=== PATIENT | female | born 1960 | race Hispanic/Latino ===

== ENCOUNTER 2016-11-04 00:56 | Observation (INO) | payer OTHER ==
[~2016-11-04] VITALS: Ht 157.5 cm; Wt 79.4 kg
--- NOTE | 2016-11-04 17:42 | Operative Report ---
Operative/Inv Procedure Report Surgery Date: 11/04/16 Name of Procedure: Lateral reduction mammoplasty Pre-Operative Diagnosis: Macromastia Post-Operative Diagnosis: Same Estimated Blood Loss: scant (200) Surgeon/Traffic Inspector: TRISTAN RESENDIZ MD Anesthesia: general endotracheal tube Operative/Procedure Note Note: The patient was counseled in regards to the procedure the alternatives the risks and expected outcomes as well as a request for surgical intervention for symptomatic macromastia. She was given an ASO PDS informed consent which she has returned sign and has no questions regarding today. I went over a description of the commonly seen complications. She was marked in the standing position for an inferior pedicle Hines pattern technique. She was then brought to the operating room placed supine on the table. Venodyne boots were placed and then general endotracheal anesthesia was established and intravenous antibiotics were given the chest was prepped and draped in usual sterile fashion. An inferior pedicle technique was used removing superior medial and lateral segments. Skin flap was developed. He was temporarily closed and the patient was brought in the sitting position to assess symmetry and location of the NAC's. 3 layered closure was carried out of all incisions. End dictation
[2016-11-04] MEDS ORDERED: SINGULAIR10 M1 PO (21:05)
[2016-11-04] MEDS ORDERED: HYDROCHLOROTHIA25 M1 PO (21:05)
--- NOTE | 2016-11-04 21:14 | Admission Core Measures ---
Admission Meds I reviewed the following Meds: Current Medications Sig/Vesta Start time Last Medication Dose Stop Time Status Admin Clindamycin 600 MG ONCE 11/04 0000 NR (Cleocin) 11/04 2359 Dextrose/Water 50 ML (D5W) Acute Coronary Syndrome Inclusion Criteria ACS Diagnosis No Inpatient Core Measures LDL Reminder: If No, please order W/I first 24hr of stay Congestive Heart Failure Inclusion Criteria CHF Diagnosis No Cerebrovascular accident Inclusion Criteria CVA/TIA Diagnosis No Inpatient Core Measures Bedside Swallow Eval Reminder: If BSE failed, place ST order Antithrombotic Reminder: Order Antithrombotic Medication by end of day 2 Antithrombotic Reminder: Document Reason Antithrombotic Not ordered by end of day 2 AFIB/Flutter Reminder: If Present, add to problem list AFIB/Flutter Reminder: Order Anticoag Medication for pts with AFIB/Flutter Atherosclerosis Reminder: If Present, add to problem list LDL Reminder: If No, please order W/I first 24hr of stay PT Order Reminder: If No, please order Venous thromboembolism Inpatient Core Measures VTE Risk Factors: Age > 40, Surgery VTE Prophylaxis Ordered Inpt Mech & Pharm No Mech VTE prophylaxis d/t No contraindications No VTE Pharm Prophylaxis d/t No contraindications Inclusion Criteria - Per Current guidelines, there needs to be overlap - treatment for the first 5 days of Warfarin therapy. - Parenteral Anticoagulation (IV or SC) needs to be - given along with Warfarin therapy. VTE Diagnosis No VTE Type NONE VTE Confirmed by (Test) NONE Problem List As ranked by this Provider includes Assessment & Plan 1. Status post bilateral breast reduction HOME MEDS Home Med List Hydrochlorothiazide 25 MG TABLET 1 TAB PO DAILY BP (Reported) Montelukast Sodium (Singulair) 10 MG TABLET 1 TAB PO DAILY ALLERGY (Reported)
--- NOTE | 2016-11-04 21:19 | PN- Plastic Surgery ---
Subjective Subjective: The patient was seen this evening postoperatively. She was lethargic but easily arousable. She reports her pain was under adequate control has no other complaints the current time. Objective Vital Signs and I&Os Vital signs: Blood pressure 118/78, pulse 62, temperature 98.3, O2 saturation 97 % on room air Physical Exam: Gen.: Lethargic but easily arousable and in no obvious distress Skin: Warm and dry Chest: Surgical dressing is clean, dry, and intact. Cardiac: S1-S2 regular Pulmonary: Bilateral breath sounds are equal and decreased at bases Extremities: Bilateral lower extremities are warm without calf tenderness Assessment/Plan Assessment/Plan Assessment: 56-year-old female status post bilateral breast reduction. Postoperative the patient remains rather sedate and unable to be safely discharged home at the current time. The patient's pain is under adequate control. The case was discussed with Dr. Kaveh Gonzalez Plan: The patient be kept in-house for 24 hours observation IV hydration until diet is advanced and tolerated Monitor for postoperative void PRN antiemetics, antipyretics, and pain medications GI and DVT prophylaxis Resume home medications Core Measures/Miscellaneous Venous Thromboembolism VTE Risk Factors: Age > 40, Surgery VTE Contraindications: No Contraindications VTE Prophylaxis Ordered Inpt: Mech & Pharm VTE Diagnosis: No VTE Type: NONE VTE Confirmed by (Test): NONE Beta Rogers Is Beta Rogers a Home Med? No Antibiotics Is Patient on Antibiotics? No
[2016-11-04] MEDS ORDERED: DILAUDID2 M1 PO (21:21)
--- NOTE | 2016-11-04 21:24 | Patient Discharge Instructions ---
Discharge Instructions General Discharge Information You were seen/treated for: See Dr. Espinal's written discharge instructions You had these procedures: Bilateral breast reduction Watch for these problems: Significantly increased pain, swelling, redness, or drainage from incisions Other wound care: See written information sheet Diet Continue normal diet: Yes Activity Activity Self Limited: Yes Other activity limits: Do not drive or operate machinery until seen by your surgeon Additional ACTIVITY Info: See printed information sheet provided to by your surgeon Acute Coronary Syndrome Inclusion Criteria At DC or during hospital stay patient has or had the following: ACS DIAGNOSIS No Discharge Core Measures Meds if any: Prescribed or Continued at Discharge Meds if any: NOT Prescribed or Continued at Discharge Congestive Heart Failure Inclusion Criteria At DC or during hospital stay patient has or had the following: CHF DIAGNOSIS No Discharge Core Measures Meds if any: Prescribed or Continued at Discharge Meds if any: NOT Prescribed or Continued at Discharge Cerebrovascular accident Inclusion Criteria At DC or during hospital stay patient has or had the following: CVA/TIA Diagnosis No Discharge Core Measures Meds if any: Prescribed or Continued at Discharge Meds if any: NOT Prescribed or Continued at Discharge Venous thromboembolism Inclusion Criteria VTE Diagnosis No VTE Type NONE VTE Confirmed by (Test) NONE Discharge Core Measures - Per Current guidelines, there needs to be overlap - treatment for the first 5 days of Warfarin therapy. - If discharged on Warfarin prior to 5 days of - overlap therapy, the patient will need to be - assessed for post discharge needs including - *Post discharge parental anticoagulation - *Warfarin and/or parental anticoagulation education - *Follow up date to check INR post discharge At least 5 days overlap therapy as Inpatient No Meds if any: Prescribed or Continued at Discharge Note: Overlap Therapy is Warfarin and Anticoagulant Meds if any: NOT Prescribed or Continued at Discharge
[2016-11-04 22:00] VITALS: BP 110/72
[2016-11-05 00:09] VITALS: BP 104/62
--- NOTE | 2016-11-05 00:25 | NUR ---
LATE ENTRY: 2200 PT ARRIVED ON FLOOR. DROWSY BUT AROUSABLE, ORIENTED TO PERSON, PLACE AND TIME. VSS, AFEBRILE, RA, NO DISTRESS. BRA DRESSING C,D,I. IV FLUIDS INFUSING TO LAC. NO C/O PAIN, NO DISTRESS. AT BEDSIDE. WILL BE MOVING TO PRIVATE ROOM SPOUSE WOULD LIKE TO STAY. PT ORIENTED TO FLOOR/ROOM. WILL CONTINUE TO MONITOR.
[2016-11-05 03:46] VITALS: BP 110/64
--- NOTE | 2016-11-05 04:55 | NUR ---
NURSE NOTE: PT COMPLAINING OF PAIN, AT THIS TIME, REFUSING ALL PAIN MEDICATION OTHER THAN TYLENOL. Will administer tylenol when IT IS APPRIOPRIATE ACCORDING TO ORDER ON EMAR Q6H.
--- NOTE | 2016-11-05 08:00 | PN- Plastic Surgery ---
Subjective Subjective: POD #1 s/p bilateral breast reduction. Pain controlled. Tolerating regular diet without N/V. No F/C, CP/SOB. Ambulating well, voiding spontaneously. Objective Vital Signs and I&Os Vital Signs Date Time Temp Pulse Resp B/P Pulse O2 O2 Flow FiO2 Ox Delivery Rate 11/05 0346 98.6 77 20 110/64 95 Room Air 11/05 0009 98.1 74 20 104/62 94 Room Air 11/04 2200 97.9 82 18 110/72 95 Room Air Intake & Output 11/05 0800 02 0000 02 1600 11/04 0800 11/04 0000 11/03 1600 Intake Total 840 150 Output Total 900 Balance -60 150 Intake, IV 600 150 Intake, Oral 240 Number 0 Bowel Movements Output, Urine 900 Patient 175 lb Weight Physical Exam: Gen: AAOx3 in NAD Cor: S1+S2+ Lungs: CTA chris. Dressings C/D/I. Ecchymosis noted to lateral aspects of chris breasts. Bra in place. Abd: soft, NT, ND, +BS x4 Ext: no edema or calf tenderness to chris lower extremities Current Medications: Current Medications Sig/Vesta Start time Last Medication Dose Route Stop Time Status Admin Acetaminophen 650 MG Q6P PRN 11/04 2214 AC 11/05 PO 0520 Acetaminophen 1,000 MG .STK-MED ONE 11/04 1259 DC IV 11/04 1300 Clindamycin 600 MG ONCE 11/04 0000 DC Dextrose/Water 50 ML IV 11/04 2359 Dextrose/Sodium 1,000 ML .[id number] 11/04 2214 AC 11/04 Chloride IV 2250 Famotidine 20 MG .STK-MED ONE 11/04 1259 DC IV 11/04 1300 Fentanyl Citrate 250 MCG .STK-MED ONE 11/04 1259 DC IM 11/04 1300 Heparin Sodium 5,000 UNIT Q8 11/04 2200 AC 11/05 (Porcine) SC 0520 Hydrochlorothiazide 25 MG DAILY 11/05 1000 AC PO Hydromorphone HCl 2 MG Q4P PRN 11/04 2215 AC PO Hydromorphone HCl 2 MG .STK-MED ONE 11/04 1258 DC IM 11/04 1259 Midazolam HCl 2 MG .STK-MED ONE 11/04 1259 DC IM 11/04 1300 Montelukast Sodium 10 MG AT BEDTIME 11/04 2200 AC PO Ondansetron HCl 4 MG Q6P PRN 11/04 2215 AC IV Assessment/Plan Assessment/Plan A: POD #1 s/p chris breast reduction; AVSS. Plan: D/C home today. Core Measures/Miscellaneous Venous Thromboembolism VTE Risk Factors: Age > 40, Surgery VTE Contraindications: No Contraindications VTE Prophylaxis Ordered Inpt: Mech & Pharm VTE Diagnosis: No VTE Type: NONE VTE Confirmed by (Test): NONE Beta Rogers Is Beta Rogers a Home Med? No Antibiotics Is Patient on Antibiotics? No
--- NOTE | 2016-11-05 08:03 | Surg Short-stay <48hrs Dis Sum ---
Visit Information Visit Dates Admission Date: 11/04/16 Discharge Date: 11/05/16 Surgical Short Stay DC Summary Admission Diagnosis: s/p chris breast reductions d/t back pain Final Diagnosis: same Procedure(s): bilateral breast reductions Summary/Significant Findings: Mrs. Jim is a 56 year old female admitted on 11/04/16 after undergoing a bilateral breast reduction. She was admitted overnight for pain control. On POD #1, her pain was controlled. She was stable for discharge home, with outpatient follow-up with Dr. Castro. Condition at Discharge: stable Discharge Disposition: home or self care Discharge instructions provided to patient/family: Yes Post discharge follow-up plan: Castro- patient to call for 2 week follow up
[2016-11-05 08:34] VITALS: BP 116/64
== END 2016-11-05 14:10 ==
LOC: ENRESERVTM → ENRESERVDT → STS 00:56 → PACUH 21:01 → 2NB 21:01 → ENPENDDIS 21:01 → 2NB 21:01 → EDBEDREQ 21:25 → 2NB 21:38
PROVIDERS: ADMIT Surgery Plastic and Reconstructive Surgery
DX: N62 Hypertrophy of breast (principal); D24.1 Benign neoplasm of right breast; N60.41 Mammary duct ectasia of right breast; N60.42 Mammary duct ectasia of left breast; N60.82 Other benign mammary dysplasias of left breast
CPT/HCPCS: 6040; 88305; 96372; G0378; J0131; J1644; J2250